=== PATIENT | male | born 1985 | race Hispanic/Latino ===

== ENCOUNTER 2016-08-21 23:10 | Emergency (ER) | payer OTHER ==
[2016-08-21 23:21] VITALS: BP 172/100; PULSE 72; RESP 18; TEMP 98.6; O2SAT 100
[2016-08-22 00:44] LABS: ALB/GLOB RATIO 1.4 (1.0-2.1); ALKALINE PHOSPHATASE 44 U/L (38-126); ALT/SGPT 48 U/L (21-72); AST/SGOT 52 U/L (17-59); BLOOD UREA NITROGEN 17 mg/dl (9-20); CALCIUM 9.5 mg/dL (8.4-10.2); CARBON DIOXIDE 27 mmol/L (22-30); CHLORIDE 101 mmol/L (98-107); GFR AFRICAN-AMERICAN > 60; GLUCOSE,RANDOM 105 mg/dL (75-110); POTASSIUM 3.7 MMOL/L (3.6-5.0); SODIUM 143 mmol/l (132-148); TOTAL PROTEIN 7.9 G/DL (6.3-8.2)
[2016-08-22 00:51] LABS: PARTIAL THROMBOPLASTIN TIME 26.8 SECONDS (23.3-32.5)
[2016-08-22 00:52] LABS: BASO % 0.3 % (0.0-2.0); EOS # 0.1 K/uL (0.0-0.7); EOS % 0.9 % (0.0-4.0); HEMATOCRIT 43.1 % (35.0-51.0); LYMPH % 40.5 % (20.0-40.0); MEAN CELL VOLUME 90.8 fl (80.0-94.0); MEAN CORPUSCULAR HEMOGLOBIN 30.6 pg (27.0-31.0); MEAN CORPUSCULAR HGB CONC 33.7 g/dL (33.0-37.0); MEAN PLATELET VOLUME 11.8 fl (7.2-11.7); MONO # 0.5 K/uL (0.0-0.8); MONO % 7.5 % (0.0-10.0); NEUT # 3.7 K/uL (1.8-7.0); NEUT % 50.8 % (50.0-75.0); NRBC % 0.2 % (0.0-0.0); RED CELL DISTRIBUTION WIDTH 13.6 % (11.5-14.5); WHITE BLOOD COUNT 7.3 K/uL (4.8-10.8)
--- NOTE | 2016-08-22 00:57 | ED PDOC ---
HPI: General Adult Time Seen by Provider: 08/21/16 23:32 Chief Complaint (Nursing): Weakness/Neurological Deficit Chief Complaint (Provider): numbness History Per: Patient History/Exam Limitations: no limitations Onset/Duration Of Symptoms: Hrs Current Symptoms Are (Timing): Gone Now Additional History Per: Patient Additional Complaint(s): 31 y/o male presents with "slight numbness" to right cheek at approx 18:00 tonight. Patient states symptoms lasted approx an hour then resolved. He now notes frontal "tightness" upon arrival to ED. Patient states for the last 3-4 days he has felt "tightness" in neck, worse on left side. He also notes intermittent left elbow pain and "cold" feeling in fingers of left hand. Denies dizziness, extremity numbness/weakness, vision changes, chest pain, shortness of breath, palpitations, abdominal pain, leg pain/swelling. Past Medical History Reviewed: Historical Data, Nursing Documentation, Vital Signs Vital Signs: Last Vital Signs Temp 98.6 F 08/21/16 23:18 Pulse 72 08/21/16 23:18 Resp 18 08/21/16 23:18 BP 172/100 H 08/21/16 23:18 Pulse Ox 100 08/22/16 01:50 - Medical History PMH: HTN ((as teenager)), Hypercholesterolemia ((as teenager)) - Surgical History Surgical History: No Surg Hx - Family History Family History: States: Unknown Family Hx - Living Arrangements Living Arrangements: Alone - Allergies Allergies/Adverse Reactions: Allergies Allergy/AdvReac Type Severity Reaction Status Date / Time No Known Allergies Allergy Verified 08/21/16 23:18 Review of Systems ROS Statement: Except As Marked, All Systems Reviewed And Found Negative Neurological: Positive for: Numbness, Headache Physical Exam - Reviewed Nursing Documentation Reviewed: Yes Vital Signs Reviewed: Yes - Physical Exam Appears: Positive for: Well, Non-toxic, No Acute Distress Head Exam: Positive for: ATRAUMATIC, NORMAL INSPECTION, NORMOCEPHALIC Skin: Positive for: Normal Color Eye Exam: Positive for: Normal appearance, EOMI, PERRL ENT: Positive for: Normal ENT Inspection Cardiovascular/Chest: Positive for: Regular Rate, Rhythm Respiratory: Positive for: Normal Breath Sounds Gastrointestinal/Abdominal: Positive for: Normal Exam Back: Positive for: Normal Inspection Extremity: Positive for: Normal ROM Neurologic/Psych: Positive for: Alert, Oriented. Negative for: Motor/Sensory Deficits - Laboratory Results Result Diagrams: 08/22/16 00:06 08/22/16 00:06 - ECG O2 Sat by Pulse Oximetry: 100 - Progress ED Course And Treament: labs, CT head, CT cspine EXAM: CT Head Without Intravenous Contrast CLINICAL HISTORY: 31 years old, male; Pain; Headache TECHNIQUE: Axial computed tomography images of the head/brain without intravenous contrast. This CT exam was performed using one or more of the following dose reduction techniques: automated exposure control, adjustment of the mA and/or kV according to patient size, and/or use of iterative reconstruction technique. Coronal and sagittal reformatted images were created and reviewed. COMPARISON: No relevant prior studies available. FINDINGS: Brain: Unremarkable. No hemorrhage. No significant white matter disease. No edema. Ventricles: Unremarkable. No ventriculomegaly. Bones/joints: Unremarkable. No acute fracture. Soft tissues: Unremarkable. Sinuses: Unremarkable as visualized. No acute sinusitis. Mastoid air cells: Unremarkable as visualized. No mastoid effusion. IMPRESSION: Normal head/brain CT. EXAM: CT Cervical Spine Without Intravenous Contrast CLINICAL HISTORY: 31 years old, male; Pain; Neck pain; Additional info: Neck pain, paresthesias TECHNIQUE: Axial computed tomography images of the cervical spine without intravenous contrast. This CT exam was performed using one or more of the following dose reduction techniques: automated exposure control, adjustment of the mA and/or kV according to patient size, and/or use of iterative reconstruction technique. Coronal and sagittal reformatted images were created and reviewed. COMPARISON: No relevant prior studies available. FINDINGS: Vertebrae: Unremarkable. No acute fracture. Discs/spinal canal/neural foramina: No acute findings. No spinal canal stenosis. Soft tissues: Unremarkable. Lung apices: Unremarkable as visualized. IMPRESSION: Normal cervical spine CT. On re-eval, patient resting comfortably; states no complaints/symptoms currently. BP 124/78 Case discussed with ED attending Dr. Brizuela; agrees with plan to d/c to follow up PMD 2-3 days. Return to ED for worsening/concerning symptoms. Disposition - Clinical Impression Clinical Impression: Paresthesia - Patient ED Disposition Is Patient to be Admitted: No Counseled Patient/Family Regarding: Studies Performed, Diagnosis, Need For Followup - Disposition Referrals: [facility] [Outside] Disposition: Routine/Home Disposition Time: 01:43 Condition: IMPROVED Instructions: Paresthesia (ED)
--- NOTE | 2016-08-22 08:15 | CT ---
PROCEDURE: CT HEAD WITHOUT CONTRAST. HISTORY: headache COMPARISON: None available. TECHNIQUE: Axial computed tomography images were obtained through the head/brain without intravenous contrast. Radiation dose: Total exam DLP = 902.91 mGy-cm. FINDINGS: HEMORRHAGE: No intracranial hemorrhage. BRAIN: No mass effect or edema. No atrophy or chronic microvascular ischemic changes. VENTRICLES: Unremarkable. No hydrocephalus. CALVARIUM: Unremarkable. PARANASAL SINUSES: Unremarkable as visualized. No significant inflammatory changes. MASTOID AIR CELLS: Unremarkable as visualized. No inflammatory changes. OTHER FINDINGS: None. IMPRESSION: No evidence of acute intracranial hemorrhage or acute pathology. No evidence of sinusitis or mastoiditis. Preliminary report was submitted by [facility].
--- NOTE | 2016-08-22 08:24 | CT ---
PROCEDURE: CT Cervical Spine without contrast HISTORY: Neck pain paresthesias. COMPARISON: None available. TECHNIQUE: Axial computed tomography images were obtained of the cervical spine without the use of intravenous contrast. Coronal and sagittal reformatted images were created and reviewed. Radiation dose: Total exam DLP = 502.76 mGy-cm. FINDINGS: VERTEBRAE: No fracture. Normal alignment. No destructive bony lesion. DISCS/SPINAL CANAL/NEURAL FORAMINA: No significant central canal or neural foraminal stenosis. Discs heights are grossly preserved. PARASPINAL SOFT TISSUES: Unremarkable. OTHER FINDINGS: None. IMPRESSION: No evidence of acute fracture or subluxation. No evidence of spinal or neural foraminal narrowing. Preliminary report was submitted by [facility].
== END 2016-08-22 02:00 | disposition home or self-care (01) ==
LOC: H.ER 23:10
DX: R20.9 Unspecified disturbances of skin sensation (principal)

== ENCOUNTER 2017-03-18 00:19 | Inpatient (IN) | payer OTHER ==
[2017-03-18 00:41] VITALS: BMI 29.8
[2017-03-18 01:13] LABS: EOS # 0.1 K/uL (0.0-0.7); EOS % 1.3 % (0.0-4.0); LYMPH # 4.1 K/uL (1.0-4.3); MEAN CORPUSCULAR HEMOGLOBIN 30.3 pg (27.0-31.0); MONO # 0.9 K/uL (0.0-0.8); MONO % 10.6 % (0.0-10.0); NEUT # 3.2 K/uL (1.8-7.0)
--- NOTE | 2017-03-18 01:14 | ED PDOC ---
HPI: SOB/CHF/COPD Time Seen by Provider: 03/18/17 00:32 Chief Complaint (Nursing): Shortness Of Breath Chief Complaint (Provider): Shortness of breath History Per: Patient History/Exam Limitations: no limitations Onset/Duration Of Symptoms: Hrs Current Symptoms Are (Timing): Still Present Exacerbating Factor(s): Exertion Additional History Per: Patient Additional Complaint(s): 31yo male with past medical history of hypertension and hypercholesterolemia, controlled by diet and exercise, presents to the ED for evaluation of shortness of breath and mid-scapular back pain. Patient reports symptoms started when he was running yesterday morning; patient states the run was normal and he did not over-exert himself. Patient reports pressured between his scapula and associated difficulty with taking deep breaths. He states no such symptoms in past. Patient states his symptoms improved throughout the day but he still has mild shortness of breath, prompting his visit to the ED. No other medical complaints. Past Medical History Reviewed: Historical Data, Nursing Documentation, Vital Signs Vital Signs: Last Vital Signs Temp 98.2 F 03/18/17 00:41 Pulse 53 L 03/18/17 04:00 Resp 18 03/18/17 04:00 BP 137/77 03/18/17 03:35 Pulse Ox 99 03/18/17 02:31 - Medical History PMH: HTN ((as teenager)), Hypercholesterolemia ((as teenager)) - Surgical History Surgical History: No Surg Hx - Family History Family History: States: No Known Family Hx, Unknown Family Hx - Living Arrangements Living Arrangements: With Family - Social History Current smoker - smoking cessation education provided: No Ex-Smoker (has not smoked in the last 12 months): No Alcohol: Social Drugs: Denies - Home Medications Home Medications: Ambulatory Orders Medication Instructions Recorded No Known Home Med 03/18/17 - Allergies Allergies/Adverse Reactions: Allergies Allergy/AdvReac Type Severity Reaction Status Date / Time No Known Allergies Allergy Verified 03/18/17 00:40 Review of Systems ROS Statement: Except As Marked, All Systems Reviewed And Found Negative Cardiovascular: Negative for: Chest Pain Respiratory: Positive for: Shortness of Breath, Other (diffculty taking deep breaths) Musculoskeletal: Positive for: Back Pain (mid-scapular back pain and pressure) Physical Exam - Reviewed Nursing Documentation Reviewed: Yes Vital Signs Reviewed: Yes - Physical Exam Appears: Positive for: Non-toxic Head Exam: Positive for: ATRAUMATIC, NORMAL INSPECTION, NORMOCEPHALIC Skin: Positive for: Warm Eye Exam: Positive for: Normal appearance Neck: Positive for: Supple Cardiovascular/Chest: Positive for: Regular Rate, Rhythm Respiratory: Positive for: Normal Breath Sounds. Negative for: Accessory Muscle Use, Wheezing, Respiratory Distress Back: Positive for: Normal Inspection. Negative for: Vertebral Tenderness Extremity: Positive for: Normal ROM. Negative for: Deformity Neurologic/Psych: Positive for: Alert, Oriented. Negative for: Motor/Sensory Deficits - Laboratory Results Result Diagrams: 03/18/17 01:05 03/18/17 01:05 - ECG O2 Sat by Pulse Oximetry: 100 (RA) Pulse Ox Interpretation: Normal Medical Decision Making Medical Decision Making: Time: 40 Impression: PE vs. ACS Plan: -- EKG -- Chest x-ray -- Labs -- Urinalysis Reassess Time: 116 Chest x-ray as reviewed by provider indicates no acute diseased; normal XR. Time: 151 Patient to be admitted to OBS-TELE under Dr. Almonte for abnormal EKG and dyspnea Scribe Attestation: Documented by Renee Goldstein acting as a scribe for Orville Grady MD. Provider Attestation: All medical record entries made by the Scribe were at my direction and personally dictated by me. I have reviewed the chart and agree that the record accurately reflects my personal performance of the history, physical exam, medical decision making, and the department course for this patient. I have also personally directed, reviewed, and agree with the discharge instructions and disposition. Disposition - Clinical Impression Clinical Impression: Dyspnea - Patient ED Disposition Is Patient to be Admitted: Yes - Disposition Disposition Time: 01:50 Condition: GUARDED
[2017-03-18 01:27] LABS: BASO % 0.4 % (0.0-2.0); HEMATOCRIT 42.6 % (35.0-51.0); LYMPH % 49.3 % (20.0-40.0); MEAN CELL VOLUME 91.4 fl (80.0-94.0); MEAN CORPUSCULAR HGB CONC 33.1 g/dL (33.0-37.0); MEAN PLATELET VOLUME 11.9 fl (7.2-11.7); NEUT % 38.4 % (50.0-75.0); NRBC % 0.1 % (0.0-0.0); RED CELL DISTRIBUTION WIDTH 13.2 % (11.5-14.5); WHITE BLOOD COUNT 8.4 K/uL (4.8-10.8)
[2017-03-18 01:33] LABS: BLOOD UREA NITROGEN 28 mg/dl (9-20); CALCIUM 9.1 mg/dL (8.4-10.2); CARBON DIOXIDE 26 mmol/L (22-30); CHLORIDE 103 mmol/L (98-107); GFR AFRICAN-AMERICAN > 60; GLUCOSE,RANDOM 100 mg/dL (75-110); POTASSIUM 4.2 MMOL/L (3.6-5.0); SODIUM 141 mmol/l (132-148)
[2017-03-18 02:03] LABS: THYROID STIMULATING HORMONE 5.71 mIU/ML (0.46-4.68)
[2017-03-18 02:51] LABS: RBC URINE 1 /hpf (0-3); URINE BACTERIA RARE (<OCC); URINE BILIRUBIN NEGATIVE (NEGATIVE); URINE BLOOD NEGATIVE (NEGATIVE); URINE COLOR STRAW (YELLOW); URINE GLUCOSE (UA) NEG (Normal); URINE KETONE NEGATIVE (NEGATIVE); URINE LEUKOCYTE ESTERASE NEG Leu/uL (Negative); URINE PROTEIN 30 mg/dL (NEGATIVE); URINE UROBILINOGEN 0.2-1.0 mg/dL (0.2-1.0); WBC URINE < 1 /hpf (0-5)
--- NOTE | 2017-03-18 07:10 | RAD ---
HISTORY: cp, sob, abnl ekg COMPARISON: No prior. TECHNIQUE: Chest PA and lateral FINDINGS: LUNGS: No active pulmonary disease. PLEURA: No significant pleural effusion identified. No pneumothorax apparent. CARDIOVASCULAR: Normal. OSSEOUS STRUCTURES: No significant abnormalities. VISUALIZED UPPER ABDOMEN: Normal. OTHER FINDINGS: None. IMPRESSION: No active disease.
--- NOTE | 2017-03-18 09:07 | CARD ---
APPROVED REPORT EKG Measurement Heart [id number] <Conclusion> Sinus bradycardia Incomplete right bundle branch block ST & T wave abnormality, consider inferior ischemia ST & T wave abnormality, consider anterolateral ischemia Abnormal ECG
--- NOTE | 2017-03-18 09:07 | CARD ---
APPROVED REPORT EKG Measurement Heart [id number] <Conclusion> Sinus bradycardia Incomplete right bundle branch block ST & T wave abnormality, consider inferior ischemia ST & T wave abnormality, consider anterolateral ischemia Abnormal ECG
--- NOTE | 2017-03-18 12:48 | CP.PCM.HP ---
History of Present Illness - History of Present Illness History of Present Illness: This is a 31 /o male admitted for chest discomfort and vague tenderness on the anterior chest and left trapezius and shoulder area. Symptoms started while he was running. He experienced some pain in the area and had o stop running. Symptoms were persistent and eventually affected the anterior chest and had vague substernal discomfort hence sought medical consult He has a hx of HTN and hyperlipidemia but not on any medication. Has significant family hx of CAD, Past Patient History - Past Medical History & Family History Past Medical History?: Yes - Past Social History Alcohol: Social Drugs: Denies - CARDIAC Hx Hypercholesterolemia: Yes ((as teenager)) Hx Hypertension: Yes ((as teenager)) - PULMONARY Hx Respiratory Disorders: No - NEUROLOGICAL Hx Neurological Disorder: No - HEENT Hx HEENT Problems: No - RENAL Hx Chronic Kidney Disease: No - ENDOCRINE/METABOLIC Hx Endocrine Disorders: No - HEMATOLOGICAL/ONCOLOGICAL Hx Blood Disorders: No - INTEGUMENTARY Hx Dermatological Problems: No - MUSCULOSKELETAL/RHEUMATOLOGICAL Hx Musculoskeletal Disorders: No Hx Falls: No - GASTROINTESTINAL Hx Gastrointestinal Disorders: No - GENITOURINARY/GYNECOLOGICAL Hx Genitourinary Disorders: No - PSYCHIATRIC Hx Psychophysiologic Disorder: No Hx Substance Use: No - SURGICAL HISTORY Hx Surgeries: No - ANESTHESIA Hx Anesthesia: Yes Has any member of the family had a problem w/ anesthesia?: No Meds Allergies/Adverse Reactions: Allergies Allergy/AdvReac Type Severity Reaction Status Date / Time No Known Allergies Allergy Verified 03/18/17 00:40 Results - Vital Signs Recent Vital Signs: Last Vital Signs Temp 98.7 F 03/18/17 08:00 Pulse 70 03/18/17 08:00 Resp 18 03/18/17 08:00 BP 141/72 03/18/17 08:00 Pulse Ox 100 03/18/17 08:00 - Labs Result Diagrams: 03/18/17 01:05 03/18/17 01:05 Labs: Laboratory Results - last 24 hr 03/18/17 03/18/17 03/18/17 01:05 01:05 01:05 WBC 8.4 D RBC 4.66 Hgb 14.1 Hct 42.6 MCV 91.4 MCH 30.3 MCHC 33.1 RDW 13.2 Plt Count 158 MPV 11.9 H Neut % (Auto) 38.4 L Lymph % (Auto) 49.3 H Mason % (Auto) 10.6 H Eos % (Auto) 1.3 Baso % (Auto) 0.4 Neut # 3.2 Lymph # 4.1 Mason # 0.9 H Eos # 0.1 Baso # 0.0 PT 13.2 H INR 1.2 APTT 29.0 D-Dimer, Quantitative 152 Sodium 141 Potassium 4.2 Chloride 103 Carbon Dioxide 26 Anion Gap 16 BUN 28 H Creatinine 1.1 Est GFR ( Amer) > 60 Est GFR (Non-Af Amer) > 60 Random Glucose 100 Calcium 9.1 Troponin I < 0.0120 TSH 3rd Generation 5.71 H Urine Color Urine Clarity Urine pH Ur Specific [place] Urine Protein Urine Glucose (UA) Urine Ketones Urine Blood Urine Nitrate Urine Bilirubin Urine Urobilinogen Ur Leukocyte Esterase Urine RBC (Auto) Urine Microscopic WBC Ur Squamous Epith Cells Urine Bacteria 03/18/17 03/18/17 02:30 06:30 WBC RBC Hgb Hct MCV MCH MCHC RDW Plt Count MPV Neut % (Auto) Lymph % (Auto) Mason % (Auto) Eos % (Auto) Baso % (Auto) Neut # Lymph # Mason # Eos # Baso # PT INR APTT D-Dimer, Quantitative Sodium Potassium Chloride Carbon Dioxide Anion Gap BUN Creatinine Est GFR ( Amer) Est GFR (Non-Af Amer) Random Glucose Calcium Troponin I < 0.0120 TSH 3rd Generation Urine Color Straw Urine Clarity Slighty-cloudy Urine pH 6.0 Ur Specific [place] 1.013 Urine Protein 30 Urine Glucose (UA) Neg Urine Ketones Negative Urine Blood Negative Urine Nitrate Negative Urine Bilirubin Negative Urine Urobilinogen 0.2-1.0 Ur Leukocyte Esterase Neg Urine RBC (Auto) 1 Urine Microscopic WBC < 1 Ur Squamous Epith Cells < 1 Urine Bacteria Rare Assessment & Plan (1) Chest pain Status: Acute (2) Hyperlipidemia Status: Acute (3) Dyspnea Status: Acute
--- NOTE | 2017-03-18 13:46 | CP.PCM.CON ---
History of Present Illness - History of Present Illness History of Present Illness: PT WITH MSK LIKE CP FOR 1 DAY. HE ADMITS TO RECENT HEAVY WEIGHT TRAINING. HIS BACK AND AND CHEST DISCOMFORT IS MILD, CONSTANT AND WORSENS W MOVEMENT OF HIS LUE. PT DENIES SOB, PALP, LH, SYNCOPE HX, FAM HX OF SCD, RECENT VIRAL ILLNESSES. NO RECENT MAJOR EMOTIONALLY TRAUMATIC EVENT. PT AND HIS ARE SEEING FERTILITY DOC AND HIS SPERM COUNTS HAVE DROPPED OFF SIGNIFICANTLY OVER PAST 6 MONTHS. HIS TSH IS ELEVATED. EKG SHOWS SB WITH RBBB AND INCREASED QTC. Review of Systems - Constitutional Constitutional: As Per HPI. absent: Anorexia, Chills, Daytime Sleepiness, Excessive Sweating, Fatigue, Fever, Frequent Falls, Headache, Increased Appetite , Lethargy, Malaise, Night Sweats, Snoring, Sleep Apnea, Weight Gain, Weight Loss, Weakness, Other - EENT Eyes: As Per HPI. absent: Blind Spots, Blurred Vision, Change in Vision, Decreased Night Vision, Diplopia, Discharge, Dry Eye, Exophthalmos, Floaters, Irritation, Itchy Eyes, Loss of Peripheral Vision, Pain, Photophobia, Requires Corrective Lenses, Sees Flashes, Spots in Vision, Tunnel Vision, Other Visual Disturbances, Loss of Vision, Other Ears: As Per HPI. absent: Decreased Hearing, Ear Discharge, Ear Pain, Tinnitus , Abnormal Hearing, Disequilibrium, Dizziness, Other Nose/Mouth/Throat: As Per HPI. absent: Epistaxis, Nasal Congestion, Nasal Discharge, Nasal Obstruction, Nasal Trauma, Nose Pain, Post Nasal Drip, Sinus Pain, Sinus Pressure, Bleeding Gums, Change in Voice, Dental Pain, Dry Mouth, Dysphagia, Halitosis, Hoarsness, Lip Swelling, Mouth Lesions, Mouth Pain, Odynophagia, Sore Throat, Throat Swelling, Tongue Swelling, Facial Pain, Neck Pain, Neck Mass, Other - Cardiovascular Cardiovascular: As Per HPI, Chest Pain at Rest, Dyspnea. absent: Acrocyanosis, Chest Pain, Chest Pain with Activity, Claudication, Diaphoresis, Dyspnea on Exertion, Edema, Irregular Heart Rhythm, Pain Radiating to Arm/Neck/Jaw, Leg Edema, Leg Ulcers, Lightheadedness, Orthopnea, Palpitations, Paroxysmal Nocturnal Dyspnea, Pedal Edema, Radiating Pain, Rapid Heart Rate, Slow Heart Rate, Syncope, Other - Respiratory Respiratory: As Per HPI, Dyspnea. absent: Cough, Hemoptysis, Dyspnea on Exertion, Wheezing, Snoring, Stridor, Pain on Inspiration, Chest Congestion, Excessive Mucous Production, Change in Mucous Color, Pain with Coughing, Other - Gastrointestinal Gastrointestinal: As Per HPI. absent: Abdominal Pain, Belching, Bloating, Change in Bowel Habits, Change in Stool Character, Coffee Ground Emesis, Constipation, Cramping, Diarrhea, Dyspepsia, Dysphagia, Early Satiety, Excessive Flatus, Fecal Incontinence, Heartburn, Hematemesis, Hematochezia, Loose Stools, Melena, Nausea, Odynophagia, Temesmus, Vomiting, Other - Genitourinary Genitourinary: As Per HPI. absent: Change in Urinary Stream, Difficulty Urinating, Dysuria, Flank Pain, Hematuria, Pyuria, Nocturia, Urinary Incontinence, Urinary Frequency, Urinary Hesitance, Urinary Urgency, Voiding Freq/Small Amts, Freq UTI, Hx Renal/Bladder Calculi, Hx /Renal Surgery, Bladder Distension, Other - Reproductive: Male Reproductive:Male: As Per HPI - Musculoskeletal Musculoskeletal: As Per HPI. absent: Abnormal Gait, Arthralgias, Atrophy, Back Pain, Deformity, Joint Swelling, Limited Range of Motion, Loss of Height, Muscle Cramps, Muscle Weakness, Myalgias, Neck Pain, Numbness, Radiating Pain into Limb, Stiffness, Tingling, Other - Integumentary Integumentary: As Per HPI. absent: Acne, Alopecia, Bleeding Lesions, Change in Hair, Change in Nails, Change in Pigmentation, Changing Lesions, Dry Skin, Erythema, Furuncle, Hirsutism, Lesions, New Lesions, Non-Healing Lesions, Photosensitivity, Pruritus, Rash, Skin Pain, Skin Ulcer, Sores, Striae, Swelling , Unusual Bruising, Wounds, Jaundice, Other - Neurological Neurological: As Per HPI. absent: Abnormal Gait, Abnormal Hearing, Abnormal Movements, Abnormal Speech, Behavioral Changes, Burning Sensations, Confusion, Convulsions, Disequilibrium, Dizziness, Numbness, Focal Weakness, Frequent Falls , Headaches, Lack of Coordination, Loss of Vision, Memory Loss, Paresthesias, Radicular Pain, Restless Legs, Sensory Deficit, Syncope, Tingling, Tremor, Vertigo, Weakness, Other Visual Disturbances, Other - Psychiatric Psychiatric: As Per HPI. absent: Abnormal Sleep Pattern, Anhedonia, Anxiety, Auditory Hallucinations, Behavioral Changes, Change in Appetite, Change in Libido, Confusion, Depression, Difficulty Concentrating, Hallucinations, Homicidal Ideation, Hopelessness, Irritability, Memory Loss, Mood Swings, Panic Attacks, Paranoia, Suicidal Ideation, Visual Hallucinations, Tactile Hallucinations, Other - Endocrine Endocrine: As Per HPI. absent: Change in Body Appearance, Change in Libido, Cold Intolorance, Deepening of Voice, Excessive Sweating, Fatigue, Flushing, Heat Intolorance, Increase in Ring/Shoe/Hat Size, Palpitations, Polydipsia, Polyphagia, Polyuria, Other - Hematologic/Lymphatic Hematologic: As Per HPI Past Patient History - Past Medical History & Family History Past Medical History?: Yes - Past Social History Smoking Status: Never Smoked Chewing Tobacco Use: No Cigar Use: No Alcohol: Social Drugs: Denies Home Situation {Lives}: With Family Domestic Violence: Negative - CARDIAC Hx Hypercholesterolemia: Yes ((as teenager)) Hx Hypertension: Yes ((as teenager)) - PULMONARY Hx Respiratory Disorders: No - NEUROLOGICAL Hx Neurological Disorder: No - HEENT Hx HEENT Problems: No - RENAL Hx Chronic Kidney Disease: No - ENDOCRINE/METABOLIC Hx Endocrine Disorders: No - HEMATOLOGICAL/ONCOLOGICAL Hx Blood Disorders: No - INTEGUMENTARY Hx Dermatological Problems: No - MUSCULOSKELETAL/RHEUMATOLOGICAL Hx Musculoskeletal Disorders: No Hx Falls: No - GASTROINTESTINAL Hx Gastrointestinal Disorders: No - GENITOURINARY/GYNECOLOGICAL Hx Genitourinary Disorders: No - PSYCHIATRIC Hx Psychophysiologic Disorder: No Hx Substance Use: No - SURGICAL HISTORY Hx Surgeries: No - ANESTHESIA Hx Anesthesia: Yes Has any member of the family had a problem w/ anesthesia?: No Meds Home Medications: Home Medication List Medication Instructions Recorded Confirmed Type Aspirin [Ecotrin] 81 mg PO DAILY #30 tabec 03/19/17 Rx Atorvastatin [Lipitor] 40 mg PO DAILY #30 tab 03/19/17 Rx Levothyroxine [Levoxyl] 0.025 mg PO DAILY #30 tab 03/19/17 Rx Allergies/Adverse Reactions: Allergies Allergy/AdvReac Type Severity Reaction Status Date / Time No Known Allergies Allergy Verified 03/18/17 00:40 - Medications Medications: Current Medications Aspirin (Ecotrin) 81 mg PO DAILY [facility] Last Admin: 03/18/17 09:03 Dose: 81 mg Physical Exam - Constitutional Appears: Well - Head Exam Head Exam: ATRAUMATIC, NORMAL INSPECTION, NORMOCEPHALIC - Eye Exam Eye Exam: EOMI, Normal appearance, PERRL. absent: Conjunctival injection, Nystagmus, Periorbital swelling, Periorbital tenderness, Scleral icterus Pupil Exam: NORMAL ACCOMODATION, PERRL. absent: Fixed, Irregular, Miosis, Mydriatic, Unequal - ENT Exam ENT Exam: Mucous Membranes Moist, Normal Exam. absent: Mucous Membranes Dry, Normal External Ear Exam, Normal Oropharynx, TM's Normal Bilaterally - Neck Exam Neck exam: Positive for: Normal Inspection. Negative for: Full Rom, Lymphadenopathy, Meningismus, Tenderness, Thyromegaly - Respiratory Exam Respiratory Exam: Clear to Auscultation Bilateral, NORMAL BREATHING PATTERN. absent: Accessory Muscle Use, Chest Wall Tenderness, Decreased Breath Sounds, Prolonged Expiratory Phase, Rales, Rhonchi, Wheezes, Respiratory Distress, Stridor - Cardiovascular Exam Cardiovascular Exam: REGULAR RHYTHM, +S1, +S2, Systolic Murmur. absent: Bradycardia, Tachycardia, Clicks, Diastolic murmur, Gallop, Irregular Rhythm, JVD, RRR, Rubs, +S4 - GI/Abdominal Exam GI & Abdominal Exam: Normal Bowel Sounds, Soft. absent: Bruit, Diminished Bowel Sounds, Distended, Firm, Guarding, Hernia, Hyperactive Bowel Sounds, Hypoactive Bowel Sounds, Mass, Organomegaly, Pulsatile Mass, Rebound, Rigid, Tenderness - Rectal Exam Rectal Exam: Deferred. absent: Black Stool, Bloody Stool, Hemorrhoids, Fecal Impaction, NORMAL INSPECTION - Extremities Exam Extremities exam: Positive for: normal inspection. Negative for: calf tenderness, full ROM, joint swelling, normal capillary refill, pedal edema, tenderness, pedal pulses present - Back Exam Back exam: NORMAL INSPECTION. absent: CVA tenderness (L), CVA tenderness (R), FULL ROM, muscle spasm, paraspinal tenderness, rash noted, tenderness, vertebral tenderness - Neurological Exam Neurological exam: Alert, CN II-XII Intact, Normal Gait, Oriented x3 - Psychiatric Exam Psychiatric exam: Normal Affect, Normal Mood - Skin Skin Exam: Dry, Intact, Normal Color, Warm Results - Vital Signs Recent Vital Signs: Last Vital Signs Temp 98.4 F 03/18/17 12:00 Pulse 44 L 03/18/17 12:00 Resp 18 03/18/17 12:00 BP 125/71 03/18/17 12:00 Pulse Ox 99 03/18/17 12:00 - Labs Result Diagrams: 03/18/17 01:05 03/19/17 04:50 Labs: Laboratory Results - last 24 hr 03/18/17 03/18/17 03/18/17 01:05 01:05 01:05 WBC 8.4 D RBC 4.66 Hgb 14.1 Hct 42.6 MCV 91.4 MCH 30.3 MCHC 33.1 RDW 13.2 Plt Count 158 MPV 11.9 H Neut % (Auto) 38.4 L Lymph % (Auto) 49.3 H Mathews % (Auto) 10.6 H Eos % (Auto) 1.3 Baso % (Auto) 0.4 Neut # 3.2 Lymph # 4.1 Mathews # 0.9 H Eos # 0.1 Baso # 0.0 PT 13.2 H INR 1.2 APTT 29.0 D-Dimer, Quantitative 152 Sodium 141 Potassium 4.2 Chloride 103 Carbon Dioxide 26 Anion Gap 16 BUN 28 H Creatinine 1.1 Est GFR ( Amer) > 60 Est GFR (Non-Af Amer) > 60 Random Glucose 100 Calcium 9.1 Troponin I < 0.0120 TSH 3rd Generation 5.71 H Urine Color Urine Clarity Urine pH Ur Specific [place] Urine Protein Urine Glucose (UA) Urine Ketones Urine Blood Urine Nitrate Urine Bilirubin Urine Urobilinogen Ur Leukocyte Esterase Urine RBC (Auto) Urine Microscopic WBC Ur Squamous Epith Cells Urine Bacteria 03/18/17 03/18/17 02:30 06:30 WBC RBC Hgb Hct MCV MCH MCHC RDW Plt Count MPV Neut % (Auto) Lymph % (Auto) Mathews % (Auto) Eos % (Auto) Baso % (Auto) Neut # Lymph # Mathews # Eos # Baso # PT INR APTT D-Dimer, Quantitative Sodium Potassium Chloride Carbon Dioxide Anion Gap BUN Creatinine Est GFR ( Amer) Est GFR (Non-Af Amer) Random Glucose Calcium Troponin I < 0.0120 TSH 3rd Generation Urine Color Straw Urine Clarity Slighty-cloudy Urine pH 6.0 Ur Specific [place] 1.013 Urine Protein 30 Urine Glucose (UA) Neg Urine Ketones Negative Urine Blood Negative Urine Nitrate Negative Urine Bilirubin Negative Urine Urobilinogen 0.2-1.0 Ur Leukocyte Esterase Neg Urine RBC (Auto) 1 Urine Microscopic WBC < 1 Ur Squamous Epith Cells < 1 Urine Bacteria Rare - Impressions Impression: EKG REVEALS SINUS RHYTHM WITH ICRBB AND DIFFUSE T WAVE INVERSIONS THROUGHOUT. Assessment & Plan (1) Abnormal ECG Status: Acute (2) Bradycardia Status: Resolved (3) Chest pain Status: Acute (4) Hyperlipidemia Status: Acute (5) Hypothyroid Status: Acute - Assessment and Plan (Free Text) Plan: ECHO IF EF NML THEN WILL NEED EP EVAL DC RULED OUT STRESS TEST IN AM (I CHANGED IT FROM EXERCISE TO EXERCISE NUCLEAR) CHECK LYTES AND REPLEAT CONSIDER TREATING HYPOTHYROID I ORDERED FREE T4 AND TOTAL T3 FAMILY AT BEDSIDE NO FAM HX OF SCD OR ARRYTHMIAS. D/W PT AT LENGTH 75 MIN TOTAL CARE.
[2017-03-19 05:31] LABS: ALB/GLOB RATIO 1.5 (1.0-2.1); ALKALINE PHOSPHATASE 41 U/L (38-126); ALT/SGPT 33 U/L (21-72); AST/SGOT 26 U/L (17-59); BILIRUBIN,TOTAL 1.9 mg/dl (0.2-1.3); BLOOD UREA NITROGEN 15 mg/dl (9-20); CALCIUM 9.4 mg/dL (8.4-10.2); CARBON DIOXIDE 29 mmol/L (22-30); CHLORIDE 105 mmol/L (98-107); CHOLESTEROL 252 mg/dL (0-199); GFR AFRICAN-AMERICAN > 60; GLUCOSE,RANDOM 100 mg/dL (75-110); POTASSIUM 4.6 MMOL/L (3.6-5.0); SODIUM 143 mmol/l (132-148); TOTAL PROTEIN 6.8 G/DL (6.3-8.2)
--- NOTE | 2017-03-19 11:05 | CARD ---
APPROVED REPORT EXAM: Two-dimensional and M-mode echocardiogram with Doppler and color Doppler. Other Information Quality : GoodRhythm : NSR INDICATION Abnormal EKG/Arrhythmia Dyspnea 2D DIMENSIONS IVSd1.03 (0.7-1.1cm)LVDd4.97 (3.9-5.9cm) LVOT Diameter3.00 (1.8-2.4cm)PWd1.41 (0.7-1.1cm) IVSs1.14 (0.8-1.2cm)LVDs4.17 (2.5-4.0cm) FS (%) 16.1 %PWs1.13 (0.8-1.2cm) M-Mode DIMENSIONS Left Atrium (MM)3.59 (2.5-4.0cm)IVSd0.85 (0.7-1.1cm) Aortic Root3.12 (2.2-3.7cm)LVDd5.62 (4.0-5.6cm) Aortic Cusp Exc.2.62 (1.5-2.0cm)PWd1.09 (0.7-1.1cm) IVSs1.41 cmFS (%) 43 % LVDs3.18 (2.0-3.8cm)PWs1.59 cm Mitral Valve MV E Fpezdxao89.3cm/sMV DECEL [id number] A Yiulolzl65.6cm/s MV EST67jrO/A ratio1.5MVA (PHT)3.90cm2 TDI Lateral E' Peak V14.83cm/sMedial E' Peak V11.41cm/sE/Lateral E'5.2 E/Medial E'6.8 Pulmonary Valve PV Peak Akubtfhr42.8cm/s Tricuspid Valve TR Peak Azfydqse067rv/sRAP SEIBVYKT16oyPiVX Peak Gr.16mmHg [id number] LEFT VENTRICLE The left ventricle is normal size. There is normal left ventricular wall thickness. The left ventricular function is normal. The left ventricular ejection fraction is within the normal range. The Ejection Fraction is 50-55%. There is normal LV segmental wall motion. The left ventricular diastolic function is normal. No left ventricle thrombus noted on this study. There is no mass noted in the left ventricle. RIGHT VENTRICLE The right ventricle is normal size. There is normal right ventricular wall thickness. The right ventricular systolic function is normal. ATRIA The left atrium size is normal. The right atrium size is normal. The interatrial septum is intact with no evidence for an atrial septal defect. AORTIC VALVE The aortic valve is normal in structure and function. No aortic regurgitation is present. There is no aortic valvular stenosis. There is no aortic valvular vegetation. MITRAL VALVE The mitral valve is normal in structure and function. There is no evidence of mitral valve prolapse. There is no mitral valve stenosis. There is no mitral valve regurgitation noted. TRICUSPID VALVE The tricuspid valve is normal in structure and function. There is no tricuspid valve regurgitation noted. There is no tricuspid valve prolapse or vegetation. There is no tricuspid valve stenosis. PULMONIC VALVE The pulmonary valve is normal in structure and function. There is no pulmonic valvular regurgitation. There is no pulmonic valvular stenosis. GREAT VESSELS The aortic root is normal in size. The IVC is normal in size and collapses >50% with inspiration. PERICARDIAL EFFUSION The pericardium appears normal. There is no pleural effusion. <Conclusion> The left ventricle is normal size. The left ventricular function is normal. The left ventricular ejection fraction is within the normal range. The Ejection Fraction is 50-55%.
--- NOTE | 2017-03-19 16:03 | CARD ---
APPROVED REPORT Protocol: PADMINI Test Type: Stress Nuclear Medications: NONE Medical History: HTN, FAMILY HX CAD, CHOLESTEROL Target HR: 191 bpm Resting ECG: T wave inversion Resting Heart Rate: 80 bpm Resting Blood Pressure: 130/90mmHg submaximum (85%): 162 bpm TEST SUMMARY [id number]/[id number]. [id number]/81.0. PRETESTHYPERV.00:[id number]/81.0. PRETESTWARM-UP14:[id number]/90.0. EXERCISESTAGE 103:[id number]/90.0. EXERCISESTAGE 203:[id number]/90.0. EXERCISESTAGE 303:[id number]/90.0. EXERCISESTAGE 403:[id number]/90.0. EXERCISESTAGE 500:[id number]/90.0. TGQGCRYM70:[id number]/85.0. POST EXERCISE Reason for Termination: Completed the study. Target HR: No Max HR: 166 bpm 88% of Maximum Predicted HR: 191 bpm Exercise duration: 12:01 min:sec, 5 Stage Exercise capacity: 13.4METs Max Blood Pressure: 180/90mmHg Blood Pressure response to exercise: resting hypertension - appropriate response Heart Rate response to exercise: appropriate Chest Pain: No, none Angina index: 0 Arrhythmia: No, none ST Change: No, none Deviation: 0 mm Clinical Indications Under Appropriate Use Criteria chest pain and abnormal EKG Stress EKG Interpretation Normal exercise stress stress test. EXAM: Myocardial Perfusion REST/STRESS Image QualityGood Imaging Protocol The imaging protocol used to acquire images was Rest Tc-99m/stress Tc-99m 1 day Rest Spect myocardial perfusion imaging was performed in supine position 80 minutes following the injection of 30 mCi of Tc-99 Myoview. Time of rest injection: 10:26 Time of rest imagin:40 At peak stress, the patient was injected intravenously with 10mCi of Tc-99 tetrofosmin after an infusion time of minutes and seconds. Time of stress injection: 9:20 Time of stress imagin:15 Gated Stress Spect was performed 55 minutes after intravenous Tc-99 Myoview injection. The images were gated to evaluate regional wall motion and calculate ventricular ejection fraction. NUCLEAR IMAGE INTERPRETATION The rest and stress images show normal perfusion, normal contraction and thickening. LV Perfusion The perfusion of the left ventricle was normal on the standard three tomographic images. Wall Motion normal LVEF of 62% CONCLUSION 1. The patient is a 31 year old male who was admitted to the hospital due to chest pain and an abnormal EKG. He has a history of hypertension and hyperlipidemia that he is treating with lifestyle modification. He also has a family history of CAD. The resting EKG shows sinus rhythm with an incomplete RBBB and with T wave inversions in the inferior and precordial leads. Using a standard Padmini protocol, the patient exercised for 12 minutes(completing Stage 4) at which time the test was stopped due to tiredness. He did not have any chest pain. The resting heart rate was 75 beats per minute and increased to 169 beats per minute which was 88% of the MPHR. The resting blood pressure was 130/90 and increased to 180/90 with exercise. The patient reached a workload of 13.4 mets. The rhythm was sinus. There were [address] segment depressions in limb lead III and chest lead V6. The nuclear scans showed normal perfusion of the left ventricle. The LVEF on the gated study was 62%. 2. Impression: Negative nuclear stress test for ischemia. LVEF of 62%. Mild systolic blood pressure response to exercise. Good work capacity. Recommendation medical treatment
--- NOTE | 2017-03-19 20:02 | CP.PCM.PN ---
Subjective - Date & Time of Evaluation Date of Evaluation: 03/19/17 Time of Evaluation: 19:59 - Subjective Subjective: PT WITH MINIMAL CP AND OCCASIONAL MILD CP WITH INSPIRATION. NO OTHER SYMPTOMS. PT HAS EXCELLENT EXERCISE TOLERANCE ON EST. NUCLEAR IMAGES APPEAR NORMAL WITH NML EF. ECHO SHOWS NML EF, NML DIASTOLIC, HIS MV DOES NOT MEET CRITERIA FOR MVP, MILD TR, NML PAP. RV SIZE IS NML. EXERCISE EKG REVEALS PSEUDONORMALIZATION POST EXERCISE OF ST AND T WAVES. Objective - Vital Signs/Intake and Output Vital Signs (last 24 hours): Temp Pulse Resp BP Pulse Ox 98.2 F 46 L 20 144/76 97 03/19/17 19:45 03/19/17 19:45 03/19/17 19:45 03/19/17 19:45 03/19/17 19:45 Intake and Output: 03/19/17 03/20/17 18:59 06:59 Intake Total 600 Balance 600 - Medications Medications: Current Medications Aspirin (Ecotrin) 81 mg PO DAILY [facility] Last Admin: 03/19/17 11:18 Dose: 81 mg Atorvastatin Calcium (Lipitor) 20 mg PO DAILY [facility] Last Admin: 03/19/17 11:21 Dose: 20 mg - Labs Labs: 03/18/17 01:05 03/19/17 04:50 PT 13.2 Seconds (9.8-13.1) H 03/18/17 01:05 INR 1.2 (0.9-1.2) 03/18/17 01:05 APTT 29.0 Seconds (25.6-37.1) 03/18/17 01:05 - Constitutional Appears: Well - Head Exam Head Exam: ATRAUMATIC, NORMAL INSPECTION, NORMOCEPHALIC - Eye Exam Eye Exam: EOMI, Normal appearance, PERRL. absent: Conjunctival injection, Nystagmus, Periorbital swelling, Periorbital tenderness, Scleral icterus Pupil Exam: NORMAL ACCOMODATION, PERRL - ENT Exam ENT Exam: Mucous Membranes Moist, Normal Exam. absent: Mucous Membranes Dry, Normal External Ear Exam, Normal Oropharynx, TM's Normal Bilaterally - Neck Exam Neck Exam: Full ROM, Normal Inspection - Respiratory Exam Respiratory Exam: Clear to Ausculation Bilateral, NORMAL BREATHING PATTERN. absent: Accessory Muscle Use, Chest Wall Tenderness, Decreased Breath Sounds, Prolonged Expiratory Phase, Rales, Rhonchi, Wheezes, Respiratory Distress, Stridor - Cardiovascular Exam Cardiovascular Exam: REGULAR RHYTHM, +S1, +S2, Murmur. absent: Bradycardia, Tachycardia, Clicks, Diastolic murmur, Gallop, Irregular Rhythm, JVD, RRR, Rubs , +S4 - GI/Abdominal Exam GI & Abdominal Exam: Soft, Normal Bowel Sounds. absent: Bruit, Distended, Firm , Guarding, Rigid, Tenderness, Diminished Bowel Sounds, Hernia, Hyperactive Bowel Sounds, Hypoactive Bowel Sounds, Organomegaly, Pulsatile Mass, Rebound, Mass - Rectal Exam Rectal Exam: Deferred. absent: Black Stool, Bloody Stool, Hemorrhoids, Fecal Impaction, NORMAL INSPECTION - Extremities Exam Extremities Exam: Full ROM, Normal Capillary Refill, Normal Inspection. absent : Calf Tenderness, Joint Swelling, Pedal Edema, Tenderness - Back Exam Back Exam: NORMAL INSPECTION. absent: CVA tenderness (L), CVA tenderness (R), Full ROM, muscle spasm, paraspinal tenderness, rash noted, tenderness, vertebral tenderness - Neurological Exam Neurological Exam: Alert, Awake, CN II-XII Intact, Normal Gait, Oriented x3. absent: Abnormal Gait, Altered, Motor Sensory Deficit, Reflexes Normal - Psychiatric Exam Psychiatric exam: Normal Affect, Normal Mood. absent: Agitated, Anxious, Depressed, Flat Affect, Homicidal Ideation, Manic, Suicidal Ideation - Skin Skin Exam: Dry, Intact, Normal Color, Warm. absent: Abrasion, Cyanosis, Diaphoretic, Erythema, Mottled, Pallor, Pallor, Petechiae, Rash, Urticaria, Vesicles Assessment and Plan (1) Abnormal ECG Status: Acute (2) Bradycardia Status: Resolved (3) Chest pain Status: Acute (4) Hyperlipidemia Status: Acute (5) Hypothyroid Status: Acute - Assessment and Plan (Free Text) Plan: GIVEN PSEUDONORMALIZATION OF ECG POST EXERCISE I WOULD LIKE TO R/O PE. GIVEN NML ECHO AND PAP, VQ IS MOST LIKELY TO SHOW A SMALL SUBSEGMENTAL PE. WILL CHECK ESR AND CRP, TO EVAL FOR ANY POSSIBLE INFLAMMATORY ETIOLOGY. WOULD RECHECK EKG KAREEN. OTHER POSSIBLE ETIOLOGIES ARE HYPOTHYROID, THUS I STARTED SYNTHROID. ADDITIONALLY VERONIKA, SO PT WILL GET SLEEP STUDY OUTPT. ALSO WILL NEED HOLTER AND F/U OUTPT. ON DC WOULD USE CRESTOR 5 MG IT IS WATER SOLUBLE AND LESS LIKELY TO CAUSE MUSCULOSKELETAL SE (PT DOES EXERCISE). I INSTRUCTED PT NOT TO USE ANY OTC HERBS OR EXERCISE SUPPLEMENTS. I ALSO INSTRUCTED HIM NOT TO DRINK FOR THE TIME BEING. D/W PT AT LENGTH. 60 MIN TOTAL CARE TIME.
[2017-03-20] MEDS ORDERED: Levothyroxine 50 MCG TAB PO SCH (06:30)
[2017-03-20 08:05] VITALS: O2SAT 99
--- NOTE | 2017-03-20 08:54 | CP.PCM.PN ---
Subjective - Date & Time of Evaluation Date of Evaluation: 03/19/17 Time of Evaluation: 10:00 - Subjective Subjective: Patient denies any chest pain Has no SOB. Noted to have normal ECHO and stress test. Objective - Vital Signs/Intake and Output Vital Signs (last 24 hours): Temp Pulse Resp BP Pulse Ox 98.3 F 68 18 128/71 99 03/20/17 08:00 03/20/17 08:00 03/20/17 08:00 03/20/17 08:00 03/20/17 08:00 - Medications Medications: Current Medications Aspirin (Ecotrin) 81 mg PO DAILY [facility] Last Admin: 03/20/17 08:49 Dose: 81 mg Atorvastatin Calcium (Lipitor) 20 mg PO DAILY [facility] Last Admin: 03/20/17 08:49 Dose: 20 mg Levothyroxine Sodium (Synthroid) 50 mcg PO DAILY@0630 [facility] Last Admin: 03/20/17 06:44 Dose: 50 mcg - Labs Labs: 03/18/17 01:05 03/19/17 04:50 PT 13.2 Seconds (9.8-13.1) H 03/18/17 01:05 INR 1.2 (0.9-1.2) 03/18/17 01:05 APTT 29.0 Seconds (25.6-37.1) 03/18/17 01:05 Assessment and Plan (1) Chest pain Status: Acute (2) Hyperlipidemia Status: Acute (3) Dyspnea Status: Deleted
--- NOTE | 2017-03-20 15:14 | NM ---
COMPARISON: Not available TECHNIQUE: 45.000 mCi technetium 99-m DTPA aerosol. 5.504 mCI technetium 99-m MAA administered intravenously. FINDINGS: VENTILATION COMPONENT: Mildly limited due to central tracheobronchial deposition. No significant ventilatory defect identified. PERFUSION COMPONENT: No perfusion defect appreciated. No ventilation-perfusion mismatch. IMPRESSION: Lowprobability ventilation perfusion scan for pulmonary embolism.
--- NOTE | 2017-03-20 15:30 | CP.PCM.PN ---
Subjective - Date & Time of Evaluation Date of Evaluation: 03/20/17 Time of Evaluation: 08:00 - Subjective Subjective: - Patient seen and examined at bedside. Appears to be doing well denies any chest pain, SOB, Nausea or vomiting. Objective - Vital Signs/Intake and Output Vital Signs (last 24 hours): Temp Pulse Resp BP Pulse Ox 98.4 F 61 18 130/73 99 03/20/17 12:00 03/20/17 12:00 03/20/17 12:00 03/20/17 12:00 03/20/17 12:00 - Medications Medications: Current Medications Aspirin (Ecotrin) 81 mg PO DAILY [facility] [place] Last Admin: 03/20/17 08:49 Dose: 81 mg Atorvastatin Calcium (Lipitor) 20 mg PO DAILY [facility] [place] Last Admin: 03/20/17 08:49 Dose: 20 mg Levothyroxine Sodium (Synthroid) 50 mcg PO DAILY@0630 [facility] [place] Last Admin: 03/20/17 06:44 Dose: 50 mcg - Labs Labs: 03/18/17 01:05 03/19/17 04:50 PT 13.2 Seconds (9.8-13.1) H 03/18/17 01:05 INR 1.2 (0.9-1.2) 03/18/17 01:05 APTT 29.0 Seconds (25.6-37.1) 03/18/17 01:05 - Constitutional Appears: No Acute Distress - Head Exam Head Exam: NORMAL INSPECTION - Respiratory Exam Respiratory Exam: Clear to Ausculation Bilateral, NORMAL BREATHING PATTERN. absent: Rhonchi, Wheezes - Cardiovascular Exam Cardiovascular Exam: Bradycardia, +S1 - GI/Abdominal Exam GI & Abdominal Exam: Soft, Normal Bowel Sounds. absent: Tenderness - Extremities Exam Extremities Exam: absent: Calf Tenderness - Neurological Exam Neurological Exam: Alert, Awake, Oriented x3 Assessment and Plan - Assessment and Plan (Free Text) Assessment: 1) Chest pain most likely secondary to to MSK in nature - EKG shows SB w/ RBBB and increased QTC - TSH elevated: Pt will be given levothyroxine on discharge - psuedonormalization of EKG post exercise - F/U w/ VQ scan official read - Cardio consult appreciated. - Sleep study and holter study outpatinet 2) Dyslipidemia - D/C on crestor
[2017-03-20 16:25] VITALS: BP 133/72; PULSE 46; RESP 20; TEMP 97.9
--- NOTE | 2017-03-21 08:06 | CARD ---
APPROVED REPORT EKG Measurement Heart Iqth10IVCG NE [id number] <Conclusion> Sinus bradycardia Incomplete right bundle branch block T wave abnormality, consider inferior ischemia T wave abnormality, consider anterolateral ischemia Abnormal ECG
--- NOTE | 2017-03-21 19:09 | CP.PCM.PN ---
Subjective - Date & Time of Evaluation Date of Evaluation: 03/20/17 Time of Evaluation: 19:00 - Subjective Subjective: NO FURTHER CP. V/Q LOW PROB. NO ECTOPY. Objective - Vital Signs/Intake and Output Vital Signs (last 24 hours): Temp Pulse Resp BP Pulse Ox 97.9 F 46 L 20 133/72 99 03/20/17 16:24 03/20/17 16:24 03/20/17 16:24 03/20/17 16:24 03/20/17 16:24 - Labs Labs: 03/18/17 01:05 03/19/17 04:50 PT 13.2 Seconds (9.8-13.1) H 03/18/17 01:05 INR 1.2 (0.9-1.2) 03/18/17 01:05 APTT 29.0 Seconds (25.6-37.1) 03/18/17 01:05 - Constitutional Appears: Well - Head Exam Head Exam: ATRAUMATIC, NORMAL INSPECTION, NORMOCEPHALIC - Eye Exam Eye Exam: EOMI, Normal appearance, PERRL. absent: Conjunctival injection, Nystagmus, Periorbital swelling, Periorbital tenderness, Scleral icterus Pupil Exam: NORMAL ACCOMODATION, PERRL - ENT Exam ENT Exam: Mucous Membranes Moist, Normal Exam. absent: Mucous Membranes Dry, Normal External Ear Exam, Normal Oropharynx, TM's Normal Bilaterally - Neck Exam Neck Exam: Full ROM, Normal Inspection. absent: Lymphadenopathy, Meningismus, Tenderness, Thyromegaly - Respiratory Exam Respiratory Exam: Clear to Ausculation Bilateral, NORMAL BREATHING PATTERN. absent: Accessory Muscle Use, Chest Wall Tenderness, Decreased Breath Sounds, Prolonged Expiratory Phase, Rales, Rhonchi, Wheezes, Respiratory Distress, Stridor - Cardiovascular Exam Cardiovascular Exam: REGULAR RHYTHM, +S1, +S2, Murmur. absent: Bradycardia, Tachycardia, Clicks, Diastolic murmur, Gallop, Irregular Rhythm, JVD, RRR, Rubs , +S4 - GI/Abdominal Exam GI & Abdominal Exam: Soft, Normal Bowel Sounds. absent: Bruit, Distended, Firm , Guarding, Rigid, Tenderness, Diminished Bowel Sounds, Hernia, Hyperactive Bowel Sounds, Hypoactive Bowel Sounds, Organomegaly, Pulsatile Mass, Rebound, Mass - Rectal Exam Rectal Exam: Deferred - Extremities Exam Extremities Exam: Full ROM, Normal Capillary Refill, Normal Inspection. absent : Calf Tenderness, Joint Swelling, Pedal Edema, Tenderness - Back Exam Back Exam: NORMAL INSPECTION. absent: CVA tenderness (L), CVA tenderness (R), Full ROM, muscle spasm, paraspinal tenderness, rash noted, tenderness, vertebral tenderness - Neurological Exam Neurological Exam: Alert, Awake, CN II-XII Intact, Normal Gait, Oriented x3. absent: Abnormal Gait, Altered, Motor Sensory Deficit, Reflexes Normal - Psychiatric Exam Psychiatric exam: Normal Affect, Normal Mood. absent: Agitated, Anxious, Depressed, Flat Affect, Homicidal Ideation, Manic, Suicidal Ideation - Skin Skin Exam: Dry, Intact, Normal Color, Warm. absent: Abrasion, Cyanosis, Diaphoretic, Erythema, Mottled, Pallor, Pallor, Petechiae, Rash, Urticaria, Vesicles Assessment and Plan (1) Abnormal ECG Status: Acute (2) Chest pain Status: Acute (3) Hyperlipidemia Status: Acute (4) Hypothyroid Status: Acute - Assessment and Plan (Free Text) Plan: D/W PT AND FAMILY AT LENGTH PT STABLE FOR D/C WILL F/U IN 2 WEEKS WILL HAVE PT UNDERGO SLEEP STUDY AND HOLTER MONITOR. WILL DO ANOTHER ECHO WITH BUBBLE STUDY IN 2 MONTHS ONCE TFTS NORMALIZE. PT MAY EXERCISE. TIME 60 MIN.
== END 2017-03-20 18:33 | disposition home or self-care (01) | DRG 313 ==
LOC: H.ER 00:19 → H.ERHOLD 01:52 → H.TEL 03:44 → OBSVTOIN 12:59
PROVIDERS: ADMIT Family Medicine; ATTEND Family Medicine
DX: R07.89 Other chest pain (principal); I10 Essential (primary) hypertension; I45.10 Unspecified right bundle-branch block; R00.1 Bradycardia, unspecified; R79.1 Abnormal coagulation profile; R94.31 Abnormal electrocardiogram [ECG] [EKG]; E03.9 Hypothyroidism, unspecified; E78.5 Hyperlipidemia, unspecified; Z79.82 Long term (current) use of aspirin; Z82.49 Family history of ischemic heart disease and other diseases of the circulatory system